=== PATIENT | female | born 1960 | race Caucasian/White ===

== ENCOUNTER 2022-03-26 15:18 | Inpatient (IN) | payer BC ==
[~2022-03-26] VITALS: Ht 160 cm; Wt 63.5 kg
[2022-03-26] MEDS ORDERED: NITROGLYCERIN OINT 1 GM PACKET TP ONE ×2 (15:24→15:30)
--- NOTE | 2022-03-26 15:40 | NUR ---
PT IS IN ROOM #1B. DR PATEL EVALUATED THE PT.
[2022-03-26 15:43] LABS: CARBON DIOXIDE 29 mmol/L (21-32); CHLORIDE 105 mmol/L (98-107); CREATININE 0.8 mg/dL (0.6-1.3); GLUCOSE 107 mg/dL (74-106); UREA NITROGEN, BLOOD 16 mg/dL (7-18)
[2022-03-26 15:44] LABS: HEMATOCRIT 35.4 % (31.2-41.9); MEAN CORPUSCULAR HEMOGLOBIN 28.6 uug (24.7-32.8); MEAN CORPUSCULAR VOLUME 86.1 fL (75.5-95.3); PLATELET COUNT (AUTO) 229 K/uL (179-408)
[2022-03-26] MEDS ORDERED: VITAMIN D (15:48)
[2022-03-26] MEDS ORDERED: IRON PILLS (15:48)
[2022-03-26] MEDS ORDERED: [UNRECOGNIZED DRUG - OTHER] (15:48)
[2022-03-26] MEDS ORDERED: ATOR10TA PO (15:48)
--- NOTE | 2022-03-26 17:00 | NUR ---
REPORT RECEIVED FROM ALEKSANDER CARRANZA RN. WENT TO ER BECAUSE OF CHEST PAIN. NITROBID OINT WAS APPLIED AT 1531 AT ER. PT AOX4. AMBULATORY. SATURATING AT 99% ON ROOM AIR. PT HAVE L AC 20G SALINE LOCK. SINUS RHYTHM ON MONITOR; LABS AND CHEST XRAY IS UNREMARKABLE. PT WILL BE ADMITTED TO [facility] FOR OBSERVATION. PROBABLY WILL D/C [facility]. Addendum: 03/26/22 at 1757 by CLINTON SPENCER RN PT WILL GO TO RM 305
--- NOTE | 2022-03-26 19:06 | NUR ---
REPORT WAS GIVEN TO KIMBERLY RUIZ. PT IS GOING TO BE ADMITED TO TELEMETRY ROOM #305, ADMITING MD IS DR ANDREW.
--- NOTE | 2022-03-26 19:55 | NUR ---
Admitted patient on tele floor under the care of Karin Andrews SAWDUST DRIER, patient alert oriented, no sob no chest pain, on room air, 98%. Patient has no complain of pain at this time, at bedside. patient tele monitor sinus rhythm cont to monitor.
--- NOTE | 2022-03-26 19:57 | NUR ---
PT WAS TRANSFERED TO ROOM #305.
[2022-03-26] MEDS ORDERED: ONDANSETRON 4 MG/2 ML VIAL IV PRN (20:30)
[2022-03-26] MEDS ORDERED: MAGNESIUM HYDROXIDE 30 ML LIQUID UDC PO PRN (20:30)
[2022-03-26] MEDS: ACETAMINOPHEN 325 MG TABLET PO PRN (20:35)
[2022-03-26] MEDS: ATORVASTATIN 20 MG TABLET PO SCH (20:35)
[2022-03-26] MEDS: ENOXAPARIN SODIUM 40 MG/0.4 ML DISP.SYRIN SQ SCH (20:58)
[2022-03-26 21:18] VITALS: BP 108/51
[2022-03-27] VITALS: BP 119/51
[2022-03-27 04:08] VITALS: BP 108/50
--- NOTE | 2022-03-27 04:34 | NUR ---
Patient awake complain of left chest pain 6/10 radiates to left jaw, refused to take pain meds , refuse Tylenol po. Patient states that she don't like using strong pain meds, such morphine, or narco. v/s stable no s/s of distress cont to monitor.
[2022-03-27 07:38] LABS: HEMATOCRIT 34.1 % (31.2-41.9); MEAN CORPUSCULAR HEMOGLOBIN 28.7 uug (24.7-32.8); PLATELET COUNT (AUTO) 203 K/uL (179-408)
[2022-03-27 07:39] LABS: CREATININE 0.8 mg/dL (0.6-1.3); MAGNESIUM 1.8 mg/dL (1.8-2.4); PHOSPHOROUS 3.9 mg/dL (2.5-4.9); POTASSIUM 3.9 mmol/L (3.5-5.1)
[2022-03-27] MEDS: ASPIRIN 81 MG TAB.CHEW PO SCH (08:40)
[2022-03-27] MEDS: ACETAMINOPHEN 325 MG TABLET PO PRN (08:41)
[2022-03-27 11:20] VITALS: BP 99/43
--- NOTE | 2022-03-27 15:31 | NUR ---
Patient orders to receive CTA. manager housekeeping notified and will contact back with more information.
--- NOTE | 2022-03-27 15:38 | NUR ---
Spoke to Kayli LOPES at [facility] and notified me that Cardiac CTA won't be able to be done this weekend. Scottie notified by business case analyst. Likely procedure will be done on Tuesday. Will endorse information to PM nurse and notify Dr. Curtis.
[2022-03-27 17:05] VITALS: BP 104/55
--- NOTE | 2022-03-27 18:46 | NUR ---
Patient tolerated care well today with minimal complaints of pain or distress. IV site patent and intact. Bed left in lowest position with call light within reach. All needs met. Will endorse information to PM nurse.
[2022-03-27 20:53] VITALS: BP 104/52
[2022-03-27] MEDS: ATORVASTATIN 20 MG TABLET PO SCH (20:55)
[2022-03-27] MEDS: ENOXAPARIN SODIUM 40 MG/0.4 ML DISP.SYRIN SQ SCH (20:55)
--- NOTE | 2022-03-27 23:30 | NUR ---
Patient's remains in room despite visiting hours; pt insisting that his stays; referred to [facility] and security; Katy ovens supervisor on duty allows patient's to stay.
[2022-03-28 00:38] VITALS: BP 137/64
[2022-03-28] MEDS: ACETAMINOPHEN 325 MG TABLET PO PRN ×2 (01:22→16:46)
[2022-03-28 04:25] VITALS: BP 105/50
[2022-03-28] MEDS: ASPIRIN 81 MG TAB.CHEW PO SCH (08:36)
[2022-03-28] MEDS ORDERED: ESTRADIOL PATCH TD (11:38)
[2022-03-28] MEDS ORDERED: PROG100C8 PO (11:38)
[2022-03-28 12:38] VITALS: BP 129/59
[2022-03-28] MEDS ORDERED: [UNRECOGNIZED DRUG - OTHER] TOP SCH (14:00)
[2022-03-28] MEDS ORDERED: ESTRADIOL TOP SCH (14:00)
[2022-03-28 16:18] VITALS: BP 156/71
[2022-03-28 17:51] VITALS: BP 123/58
--- NOTE | 2022-03-28 18:00 | NUR ---
Pt c/o numbness on R/A. Neuro check done and intact. No new weakness noted, smile equal, pt able to differentiate between dull and sharp. Stated that Numbness lasted for 20 mins but never notified nursing while this was happening. VSS b/p 123/58 hr 64. PT was c/o MORRIS earlier @1700 tylenol given. Tylenol effective. PT is in no acute distress. Notified COMMISSIONER OF OFFICIALS of incident. NO new order received.
--- NOTE | 2022-03-28 19:35 | NUR ---
RECEIVED PATIENT IN BED. DENIES NUMBNESS OR DIZZINESS AT THIS TIME. AT BEDSIDE, WILL BE STAYING OVER FOR THE NIGHT. EXTENDED STAY FORM SIGNED. WILL CONTINUE TO MONITOR.
[2022-03-28 20:12] VITALS: BP 120/65
[2022-03-28] MEDS: ENOXAPARIN SODIUM 40 MG/0.4 ML DISP.SYRIN SQ SCH (21:00)
[2022-03-28] MEDS: ATORVASTATIN 20 MG TABLET PO SCH (21:01)
[2022-03-29 04:10] VITALS: BP 114/65
[2022-03-29] MEDS ORDERED: DIAZEPAM 2 MG TABLET PO PRN (08:45)
[2022-03-29] MEDS: ASPIRIN 81 MG TAB.CHEW PO SCH (08:52)
[2022-03-29] MEDS ORDERED: FERROUS SULFATE 325 MG TABEC PO SCH (09:00)
--- NOTE | 2022-03-29 09:16 | NUR ---
Patient refused the medication because she wanted to open the packaging herself, so i had to order one more pill from pharmacy and throw the previous away with a witness Addendum: 03/29/22 at 0931 by LESLIE DACOSTA RN Didn't indicate what medication the pt refused
[2022-03-29] MEDS ORDERED: DIAZEPAM 2 MG TABLET PO STA (09:23)
--- NOTE | 2022-03-29 09:29 | NUR ---
Patient refused the medication (Valium 2 mg) because she wanted to open the packaging herself, so I had to order one more pill from pharmacy and waste the previous one
--- NOTE | 2022-03-29 11:00 | NUR ---
Patient went to her procedure (CT Angio heart) to [facility] by ambulance. Vitals WNL, patient is calm, no distress, no pain noted or verbalized
--- NOTE | 2022-03-29 15:24 | NUR ---
Patient came back to [facility] from [facility] from the procedure (CT Angio heart) and feels good, no distress, she said she was a little dizzy at the [facility] and got Nitro there. Patient is walking with her now around nursing station, no pain, no distress.
[2022-03-29 16:13] VITALS: BP 144/64
--- NOTE | 2022-03-29 17:54 | NUR ---
Patient was complaining about painful IV g 20 on left upper arm that was put in [facility] for contrast dye next to her other AC IV g 20 that was put here. I took that IV out. Patient's left upper arm (where the IV was) looks more swollen than the right arm. Patient is complaining on numbness in that area. Asked me for ice, I gave her ice pack. at bedside, helping her to hold ice pack
--- NOTE | 2022-03-29 19:50 | NUR ---
RECEIVED ORDER FOR PATIENT TO DISCHARGE HOME.
[2022-03-29] MEDS: ATORVASTATIN 20 MG TABLET PO SCH (20:02)
[2022-03-29] MEDS: ENOXAPARIN SODIUM 40 MG/0.4 ML DISP.SYRIN SQ SCH (20:02)
--- NOTE | 2022-03-29 21:00 | NUR ---
PATIENT DISCHARGED HOME WITH IN STABLE CONDITION.
== END 2022-03-29 21:00 | disposition home or self-care (01) | DRG 311 ==
LOC: ER 15:18 → TELE3 19:42 → MEDSURG3 03-28 13:48
PROVIDERS: ADMIT Nurse Practitioner Acute Care; ATTEND Nurse Practitioner Acute Care
DX: I20.9 Angina pectoris, unspecified (principal); R73.03 Prediabetes; E78.00 Pure hypercholesterolemia, unspecified; F32.A Depression, unspecified; Z20.822 Contact with and (suspected) exposure to COVID-19; Z86.16 Personal history of COVID-19
CPT/HCPCS: 36415; 70450; 71045; 83735; 84100; 84484; 85025; 93005; 93307; A4663; G0378; J1650; J2405